=== PATIENT | male | born 1975 | race Two or more races ===

== ENCOUNTER 2022-06-26 07:47 | Outpatient (CLI) | payer OTHER | END 2022-06-26 07:57 | disposition home or self-care (01) | LOC: TOM 07:47 | PROVIDERS: ATTEND Internal Medicine Gastroenterology | DX: K63.5 Polyp of colon (principal); K57.30 Diverticulosis of large intestine without perforation or abscess without bleeding; R93.3 Abnormal findings on diagnostic imaging of other parts of digestive tract ==